=== PATIENT | male | born 1980 | race African-American/Black ===

== ENCOUNTER 2019-11-07 18:08 | Emergency (ER) | payer BC ==
[~2019-11-07] VITALS: Ht 170.2 cm; Wt 60.0 kg
[2019-11-07 18:25] VITALS: TEMP 99.5
[2019-11-07 19:06] LABS: TRICYCLIC ANTIDEPRESS URINE NEGATIVE
[2019-11-07 19:34] LABS: BASO # 0.1 (0.0-0.2); BASO % 0.5 % (0.0-2.0); EOS # 0.1 (0.0-0.7); EOS % 1.2 % (0-4.0); GRAN # 7.5 (1.4-6.5); GRAN % 67.7 % (42.2-75.2); HEMATOCRIT 38.6 % (42.0-52.0); HEMOGLOBIN 13.3 g/dl (13.5-18.0); LYMPH # 2.3 (1.2-3.4); LYMPH % 20.8 % (20.0-51.0); MEAN CELL VOLUME 85 fl (80.0-100.0); MEAN CORPUSCULAR HEMOGLOBIN 29 pg (27.0-31.0); MEAN CORPUSCULAR HGB CONC 35 g/dl (33.0-37.0); MEAN PLATELET VOLUME 9.3 fl (7.4-10.4); MONO % 9.3 % (1.7-9.3); PLATELET COUNT 303 K/mm3 (130-400); RED BLOOD COUNT 4.54 M/mm3 (4.20-5.60); REDCELL DISTRIBUTION WIDTH-CV 13.9 % (11.5-14.5)
[2019-11-07 19:52] LABS: ALBUMIN 4.3 gm/dL (3.5-5.0); BILIRUBIN,TOTAL 0.3 mg/dL (0.0-1.0); CALCIUM 9.1 mg/dL (8.4-10.2); CREATININE, serum 0.98 (0.66-1.25); SALICYLATE 1.1 mg/dL; TOTAL PROTEIN 7.4 gm/dL (6.4-8.2)
[2019-11-07 22:20] VITALS: BP 101/49; PULSE 89
== END 2019-11-07 22:20 | disposition home or self-care (01) ==
LOC: COL.ER 18:08
PROVIDERS: Emergency Medicine
DX: T39.1X2A Poisoning by 4-Aminophenol derivatives, intentional self-harm, initial encounter (principal); J45.909 Unspecified asthma, uncomplicated

== ENCOUNTER 2019-12-21 20:18 | Emergency (ER) | payer BC ==
[~2019-12-21] VITALS: Ht 170.2 cm; Wt 59.1 kg
[2019-12-21 20:23] VITALS: BP 125/84; TEMP 98.3
[2019-12-21] MEDS ORDERED: MOTRIN 800800 MG/TAB PO (21:12)
[2019-12-21] MEDS ORDERED: CEPHALEXIN500 M1 PO (21:12)
[2019-12-21] MEDS ORDERED: CRUTCHES MC (21:14)
[2019-12-21 21:21] VITALS: PULSE 87
== END 2019-12-21 21:22 | disposition home or self-care (01) ==
LOC: COL.ER 20:18
DX: M25.572 Pain in left ankle and joints of left foot (principal)